=== PATIENT | male | born 1950 | race Caucasian/White ===

== ENCOUNTER 2020-04-03 15:05 | Emergency (ER) | payer OTHER ==
[~2020-04-03] VITALS: Ht 165.1 cm; Wt 72.6 kg
[2020-04-03 15:13] VITALS: BP_SYST 123
--- NOTE | 2020-04-03 15:13 | NUR ---
Patient to ER bed 03 to gown for evaluation. Side rails up.
--- NOTE | 2020-04-03 15:28 | NUR ---
Pt came to ER with bilateral leg pain described as "sharp fireball" 09/08. He was told by primary Dr to come into ER when pain increases in severity.
--- NOTE | 2020-04-03 15:35 | NUR ---
ER at bedside examining patient.
[2020-04-03] MEDS ORDERED: fentaNYL CITRATE/PF 100 MCG/2 ML AMP IM ONE (15:45)
--- NOTE | 2020-04-03 16:00 | NUR ---
Report received from ERICA Calvin for continuation of care.
--- NOTE | 2020-04-03 16:15 | NUR ---
Pt. states that he experiences pain on ambulation. Dr. Velarde notified and he provided clearance for discharge of pt.
[2020-04-03 16:28] VITALS: BP_SYST 140
--- NOTE | 2020-04-03 16:30 | NUR ---
Patient given written and verbal discharge instructions and verbalizes understanding. ER MD discussed with patient the results and treatment provided. Patient in stable condition. ID arm band removed. Rx of Archer given. Patient educated on pain management and to follow up with PMD. Pain Scale 3/10 MD cleared for DC. Opportunity for questions provided and answered. Medication side effect fact sheet provided.
== END 2020-04-03 16:28 | disposition home or self-care (01) ==
LOC: SED 15:05
DX: M54.16 Radiculopathy, lumbar region (principal); I10 Essential (primary) hypertension; Z88.1 Allergy status to other antibiotic agents
CPT/HCPCS: 99283; J3010